=== PATIENT | female | born 1960 | race American Indian/Alaskan Native ===

== ENCOUNTER 2019-05-10 13:40 | Outpatient (CLI) | payer OTHER ==
--- NOTE | 2019-05-10 17:15 | Mammography Report ---
DIGITAL SCREENING MAMMOGRAM WITH CAD, 05/10/2019 INDICATION: Routine screening mammography. TECHNIQUE: Digital bilateral 2D mammography was obtained in the craniocaudal and mediolateral obliq ue projections. This examination was interpreted with the benefit of Computer-Aided Detection analysi s. COMPARISON: 04/19/2016 FINDINGS: Breast Density: There are scattered areas of fibroglandular density. There is no evidence of dominant mass, suspicious calcifications or architectural distortion in eithe r breast. No interval change. IMPRESSION: No evidence of malignancy or interval change. BI-RADS Category 1: Negative. No mammographic evidence of malignancy. Recommend routine screening m ammography in one year. A "normal" or negative report should not discourage follow up or biopsy of a clinically significant f inding. A written summary of these findings will be mailed to the patient. The patient will be entered into a mammography reporting system which will generate a reminder letter for the patient's next appointmen t at the appropriate interval. The [employer] recommends yearly mammograms starting at age 40 and continuing as l joanna as a woman is in good health. Breast MRI is recommended for women with an approximate 20-25% or greater lifetime risk of breast cancer, including women with a strong family history of breast or ova gerardo cancer or who have been treated for Hodgkin's disease. Signer Name: Kortney Jimenez MD Signed: 05/10/2019 5:10 PM Workstation Name: [id number]
== END 2019-05-10 13:41 | disposition home or self-care (01) ==
LOC: SPVWC 13:40
PROVIDERS: ATTEND Physician Assistant Medical
DX: Z12.31 Encounter for screening mammogram for malignant neoplasm of breast (principal)
CPT/HCPCS: 77067

== ENCOUNTER 2021-12-05 09:33 | Outpatient (CLI) | payer OTHER ==
--- NOTE | 2021-12-06 10:59 | Mammography Report ---
DIGITAL SCREENING MAMMOGRAM WITH CAD, 12/05/2021 CLINICAL INFORMATION / INDICATION: Routine screening mammography. SCREENING MAMMO TECHNIQUE: Digital bilateral 2D mammography was obtained in the craniocaudal and mediolateral obliqu e projections. This examination was interpreted with the benefit of Computer-Aided Detection analysis . COMPARISON: 05/11/20, 05/10/19 FINDINGS: Breast Density: There are scattered areas of fibroglandular density. No dominant mass, suspicious calcifications, or architectural distortion in either breast. IMPRESSION: No mammographic evidence of malignancy. No significant change. Follow up recommendation: Routine yearly BI-RADS Category 1: NEGATIVE A "normal" or negative report should not discourage follow up or biopsy of a clinically significant f inding. A written summary of these findings will be mailed to the patient. The patient will be entered into a mammography reporting system which will generate a reminder letter for the patient's next appointmen t at the appropriate interval. The [employer] recommends yearly mammograms starting at age 40 and continuing as l joanna as a woman is in good health. Breast MRI is recommended for women with an approximate 20-25% or greater lifetime risk of breast cancer, including women with a strong family history of breast or ova gerardo cancer or who have been treated for Hodgkin's disease. Signer Name: Yung Sow MD Signed: 12/06/2021 10:54 AM Workstation Name: [id number]
== END 2021-12-05 09:34 | disposition home or self-care (01) ==
LOC: SPVWC 09:33
PROVIDERS: ATTEND Internal Medicine
DX: Z12.31 Encounter for screening mammogram for malignant neoplasm of breast (principal)
CPT/HCPCS: 77067

== ENCOUNTER 2022-04-12 10:16 | Outpatient (CLI) | payer OTHER ==
--- NOTE | 2022-04-12 14:20 | Ultrasound Report ---
ULTRASOUND ABDOMEN, LIMITED INDICATION / CLINICAL INFORMATION: R94.5. Abnormal lab values. COMPARISON: None available. FINDINGS: PANCREAS: Visualized portion shows no significant abnormality. AORTA: No significant abnormality. IVC: No significant abnormality. LIVER: The liver is normal in size measuring 15.8 cm with mildly echogenic appearance. Normal hepatop edal blood flow within the main portal vein. GALLBLADDER: No significant abnormality. BILE DUCTS: No significant abnormality. Common bile duct measures 2 mm. RIGHT KIDNEY: The right kidney measures 9.6 cm. No significant abnormality. FREE FLUID: None. ADDITIONAL FINDINGS: None. IMPRESSION: 1. Mildly echogenic appearance of the liver, most commonly seen with mild steatosis. Scribed by: Dorothy Wilson RDMS, YVETTE, SHAKEEL Scribed: 04/12/2022 1:15 PM I have reviewed the images, agree with this report, and edited this report as needed. Signer Name: Kalpesh Luong MD Signed: 04/12/2022 2:16 PM Workstation Name: [id number]
== END 2022-04-12 10:17 | disposition home or self-care (01) ==
LOC: US 10:16
PROVIDERS: ATTEND Clinical Nurse Specialist Adult Health
DX: R94.5 Abnormal results of liver function studies (principal)
CPT/HCPCS: 76705